=== PATIENT | male | born 1935 | race Caucasian/White ===

== ENCOUNTER → 2016-11-23 | Outpatient (REF) | payer MEDICARE | LOC: M SFHCPLAZ 11:54 | PROVIDERS: ATTEND Nurse Practitioner Adult Health | DX: R31.9 Hematuria, unspecified (principal) ==

== ENCOUNTER → 2016-12-06 | Outpatient (CLI) | payer MEDICARE ==
--- NOTE | 2016-12-06 16:01 | REP ---
Chest x-ray PA and lateral: 12/06/2016. Comparison: 08/16/2016, 05/21/2016. Clinical history: Cough for over a month. Findings: Lungs are marginally adequate in the degree of inflation. There is no pleural effusion, lateral pleural thickening, apical scarring or pneumothorax. The heart, mediastinal and hilar contours are normal. The airway is intact. There is no aortic aneurysm, dense consolidation, parenchymal mass or pulmonary nodule. Bony thorax shows marginal osteophytes without acute compression deformity. Impression: No acute cardiopulmonary disease, stable chest. Signed by Keron Garrett MD 12/06/2016 04:32 P
== END ==
LOC: M WUC 15:12
PROVIDERS: ATTEND Physician Assistant
DX: R05 Cough (principal)

== ENCOUNTER → 2017-02-12 | Outpatient (CLI) | payer MEDICARE ==
[2017-02-12 19:54] LABS: MEAN CORPUSCULAR HEMOGLOBIN 30.4 pg (27.0-33.0); MEAN CORPUSCULAR HGB CONC 32.8 g/dl (32.0-36.5); MEAN CORPUSCULAR VOLUME 92.7 fl (80.0-96.0); RED CELL DISTRIBUTION WIDTH 13.1 % (11.5-14.5); WHITE BLOOD COUNT 5.3 K/mm3 (4.0-10.0)
[2017-02-12 20:19] LABS: ALBUMIN 3.9 GM/DL (3.2-5.2); ALKALINE PHOSPHATASE 62 U/L (45-117); ALT/SGPT 22 U/L (12-78); ANION GAP 10 MEQ/L (8-16); AST/SGOT 19 U/L (15-37); BILIRUBIN,TOTAL 0.5 MG/DL (0.2-1.0); BLOOD UREA NITROGEN 16 MG/DL (7-18); CARBON DIOXIDE LEVEL 27 MEQ/L (21-32); CHLORIDE LEVEL 100 MEQ/L (98-107); CHOLESTEROL LEVEL 176 MG/DL (<200); CREATININE FOR GFR 0.96 MG/DL (0.70-1.30); GLOMERULAR FILTRATION RATE > 60.0 (>42); GLUCOSE, FASTING 97 MG/DL (83-110); POTASSIUM SERUM 4.2 MEQ/L (3.5-5.1); SODIUM LEVEL 137 MEQ/L (136-145); TOTAL PROTEIN 6.9 GM/DL (6.4-8.2); TRIGLYCERIDES LEVEL 190 MG/DL (<150)
== END ==
LOC: M WUC 08:44
PROVIDERS: ATTEND Nurse Practitioner Adult Health
DX: Z00.00 Encounter for general adult medical examination without abnormal findings (principal); I10 Essential (primary) hypertension; E55.9 Vitamin D deficiency, unspecified; R73.01 Impaired fasting glucose; E78.00 Pure hypercholesterolemia, unspecified; N40.0 Benign prostatic hyperplasia without lower urinary tract symptoms

== ENCOUNTER → 2017-02-28 | Outpatient (REF) | payer MEDICARE | LOC: M SFHCPLAZ 16:23 | PROVIDERS: ATTEND Nurse Practitioner Adult Health | DX: R19.7 Diarrhea, unspecified (principal) ==

== ENCOUNTER → 2017-05-27 | Outpatient (CLI) | payer MEDICARE ==
[~2017-05-27] MED LIST: ASPI81TA85 PO; AZOP0.2S; BIMA01SOL; CLAR10CA3 PO; CLEO150C PO; COMB0.2S OU; COMBIGAN; DOXY-278 PO; FLUT1SPR2; LISINOPRIL-HCTZ; LISINOPRIL-HCTZ PO; LOTR1CRE11 TOP; MUPI2OI EXT; NEXI40CA; NORCOTAB PO; PHEN-501 PO; PREDOPD; PROAAER10; VITA100066 PO
[2017-05-27 12:38] LABS: BASO % 0.5 % (0.0-1.0); EOS # 0.1 K/mm3 (0.0-0.50); EOS % 1.5 % (0.0-3.0); LARGE UNSTAINED CELL # 0.1 K/mm3 (0.0-0.4); LARGE UNSTAINED CELL % 1.7 % (0.0-4.0); LYMPH # 2.4 K/mm3 (1.5-4.5); LYMPH % 36.1 % (24.0-44.0); MEAN CORPUSCULAR HEMOGLOBIN 31.9 pg (27.0-33.0); MEAN CORPUSCULAR HGB CONC 34.2 g/dl (32.0-36.5); MEAN CORPUSCULAR VOLUME 93.2 fl (80.0-96.0); MONO # 0.4 K/mm3 (0.0-0.8); MONO % 6.1 % (0.0-5.0); NEUTROPHILS # 3.6 K/mm3 (1.8-7.7); NEUTROPHILS % 54.1 % (36.0-66.0); PLATELET COUNT, AUTOMATED 234 k/mm3 (150-450); RED CELL DISTRIBUTION WIDTH 12.7 % (11.5-14.5); WHITE BLOOD COUNT 6.6 K/mm3 (4.0-10.0)
[2017-05-27 13:24] LABS: ANION GAP 9 MEQ/L (8-16); BLOOD UREA NITROGEN 20 MG/DL (7-18); CALCIUM LEVEL 8.9 MG/DL (8.8-10.2); CARBON DIOXIDE LEVEL 27 MEQ/L (21-32); CHLORIDE LEVEL 101 MEQ/L (98-107); CREATININE FOR GFR 0.85 MG/DL (0.70-1.30); GLOMERULAR FILTRATION RATE > 60.0 (>35); GLUCOSE, FASTING 81 MG/DL (83-110); POTASSIUM SERUM 4.1 MEQ/L (3.5-5.1); SODIUM LEVEL 137 MEQ/L (136-145)
== END ==
LOC: M WUC 10:22
PROVIDERS: ATTEND Physician Assistant
DX: R23.3 Spontaneous ecchymoses (principal)

== ENCOUNTER → 2017-06-04 | Outpatient (REF) | payer MEDICARE | LOC: M LAB REF 19:21 | PROVIDERS: ATTEND Physician Assistant | DX: R30.0 Dysuria (principal) ==

== ENCOUNTER → 2017-06-19 | Outpatient (CLI) | payer MEDICARE ==
[2017-06-19 17:54] LABS: MEAN CORPUSCULAR HEMOGLOBIN 30.9 pg (27.0-33.0); MEAN CORPUSCULAR VOLUME 93.6 fl (80.0-96.0); RED CELL DISTRIBUTION WIDTH 13.1 % (11.5-14.5); WHITE BLOOD COUNT 5.8 K/mm3 (4.0-10.0)
[2017-06-19 18:39] LABS: ALBUMIN/GLOBULIN RATIO 1.25 (1.00-1.93); ALKALINE PHOSPHATASE 71 U/L (45-117); ALT/SGPT 19 U/L (12-78); ANION GAP 9 MEQ/L (8-16); AST/SGOT 21 U/L (15-37); BILIRUBIN,TOTAL 0.6 MG/DL (0.2-1.0); BLOOD UREA NITROGEN 17 MG/DL (7-18); CALCIUM LEVEL 9.5 MG/DL (8.8-10.2); CARBON DIOXIDE LEVEL 29 MEQ/L (21-32); CHLORIDE LEVEL 98 MEQ/L (98-107); CHOLESTEROL LEVEL 202 MG/DL (<200); CREATININE FOR GFR 0.92 MG/DL (0.70-1.30); GLOMERULAR FILTRATION RATE > 60.0 (>35); GLUCOSE, FASTING 88 MG/DL (83-110); POTASSIUM SERUM 4.5 MEQ/L (3.5-5.1); SODIUM LEVEL 136 MEQ/L (136-145); TOTAL PROTEIN 7.2 GM/DL (6.4-8.2); TRIGLYCERIDES LEVEL 225 MG/DL (<150)
== END ==
LOC: M WUC 10:15
PROVIDERS: ATTEND Nurse Practitioner Adult Health
DX: R73.01 Impaired fasting glucose (principal); I10 Essential (primary) hypertension; E78.2 Mixed hyperlipidemia; E55.9 Vitamin D deficiency, unspecified

== ENCOUNTER 2017-06-26 13:59 | Emergency (ER) | payer MEDICARE ==
[~2017-06-26] VITALS: Ht 162.6 cm; Wt 70.9 kg
[2017-06-26 13:59] VITALS: BP 151/83
[2017-06-26] MEDS ORDERED: ASPI81TA85 PO (14:14)
[2017-06-26] MEDS ORDERED: PREDOPD (14:14)
[2017-06-26] MEDS ORDERED: NEXI40CA (14:14)
[2017-06-26] MEDS ORDERED: BIMA01SOL (14:14)
[2017-06-26] MEDS ORDERED: VITA100066 PO (14:14)
[2017-06-26] MEDS ORDERED: LISINOPRIL-HCTZ (14:14)
[2017-06-26] MEDS ORDERED: CLAR10CA3 PO (14:14)
[2017-06-26] MEDS ORDERED: PROAAER10 (14:14)
[2017-06-26] MEDS ORDERED: AZOP0.2S (14:14)
[2017-06-26] MEDS ORDERED: FLUT1SPR2 (14:14)
[2017-06-26] MEDS ORDERED: COMBIGAN (14:14)
[2017-06-26] MEDS ORDERED: PHENAZOPYRIDINE 100 MG TAB PO ONE (15:45)
[2017-06-26 16:06] LABS: MEAN CORPUSCULAR HEMOGLOBIN 30.8 pg (27.0-33.0); MEAN CORPUSCULAR VOLUME 90.6 fl (80.0-96.0); NEUTROPHILS % 55.8 % (36.0-66.0); PLATELET COUNT, AUTOMATED 255 k/mm3 (150-450); RED CELL DISTRIBUTION WIDTH 12.8 % (11.5-14.5); WHITE BLOOD COUNT 7.1 K/mm3 (4.0-10.0)
[2017-06-26 16:07] LABS: BASO % 0.3 % (0.0-1.0); EOS # 0.1 K/mm3 (0.0-0.50); EOS % 1.3 % (0.0-3.0); LARGE UNSTAINED CELL # 0.1 K/mm3 (0.0-0.4); LARGE UNSTAINED CELL % 1.5 % (0.0-4.0); LYMPH # 2.6 K/mm3 (1.5-4.5); LYMPH % 34.8 % (24.0-44.0); MONO # 0.4 K/mm3 (0.0-0.8); MONO % 6.2 % (0.0-5.0); NEUTROPHILS # 3.9 K/mm3 (1.8-7.7)
[2017-06-26 16:20] LABS: ANION GAP 10 MEQ/L (8-16); BLOOD UREA NITROGEN 15 MG/DL (7-18); CALCIUM LEVEL 9.3 MG/DL (8.8-10.2); CARBON DIOXIDE LEVEL 25 MEQ/L (21-32); CHLORIDE LEVEL 102 MEQ/L (98-107); CREATININE FOR GFR 0.81 MG/DL (0.70-1.30); GLOMERULAR FILTRATION RATE > 60.0 (>35); GLUCOSE, FASTING 119 MG/DL (83-110); SODIUM LEVEL 137 MEQ/L (136-145)
[2017-06-26] MEDS ORDERED: PHEN-501 PO (16:22)
[2017-09-23] MEDS ORDERED: LISINOPRIL-HCTZ PO (10:36)
[2017-09-23] MEDS ORDERED: COMB0.2S OU (10:36)
[2017-09-23] MEDS ORDERED: LOTR1CRE11 TOP (12:14)
== END 2017-06-26 16:29 | disposition home or self-care (01) ==
LOC: M ED 13:59
DX: M54.5 Low back pain (principal); R30.0 Dysuria; Z79.82 Long term (current) use of aspirin; Z79.899 Other long term (current) drug therapy; Z88.1 Allergy status to other antibiotic agents; Z88.2 Allergy status to sulfonamides; Z88.8 Allergy status to other drugs, medicaments and biological substances

== ENCOUNTER 2017-07-13 11:30 | Emergency (ER) | payer MEDICARE ==
[~2017-07-13] VITALS: Ht 162.6 cm; Wt 69.1 kg
[~2017-07-13 11:30] MED LIST changes: -CLEO150C PO; -COMB0.2S OU; -DOXY-278 PO; -LISINOPRIL-HCTZ PO; -LOTR1CRE11 TOP; -MUPI2OI EXT; -NORCOTAB PO
--- NOTE | 2017-07-13 13:09 | REP ---
CT Head without contrast HISTORY: Fall COMPARISON: 03/18/2012 Areas of decreased attenuation are present in the periventricular white matter. This represents small-vessel ischemic disease. There is no intraparenchymal hemorrhage, acute infarct, mass or midline shift. The ventricular system and cortical sulci are dilated consistent with mild volume loss. There is no extra cerebral collection. There is no fracture. The visualized sinuses are clear. Several punctate collections of air are present in the subgaleal tissue overlying the right frontal bone. IMPRESSION: 1. Small vessel ischemic disease. 2. Mild volume loss. Signed by Booker Chamberlain MD 07/13/2017 01:01 P
[2017-07-13] MEDS ORDERED: PERCOCET 5MG/325MG TAB PO ONE (13:45)
[2017-07-13] MEDS ORDERED: CLEO150C PO (13:49)
[2017-07-13] MEDS ORDERED: NORCOTAB PO (13:49)
--- NOTE | 2017-07-13 14:04 | REP ---
MAXILLOFACIAL CT WITHOUT CONTRAST: HISTORY: Fall. COMPARISON: 08/03/2011 The sinuses are clear. The osteomeatal units are patent. The middle and inferior nasal turbinates are partially paradoxical. The nasal septum is midline. The cribriform plate, medial peraza of the orbits and optic canals are intact. The carotid canals form a segment of the posterolateral peraza of the sphenoid sinus. There is no fracture. The patient is status post repair of a fracture at the junction of the angle and body of the left mandible. Curvilinear calcification is present superior to and contiguous with the left globe. This is surrounded by a small amount of soft tissue that likely represents scar tissue. Several punctate collections of air are present in the subgaleal soft tissue overlying the right frontal bone. IMPRESSION: There is no acute or chronic sinusitis. Signed by Booker Chamberlain MD 07/13/2017 02:06 P
--- NOTE | 2017-07-13 14:09 | REP ---
RIGHT HAND SERIES: Five views. HISTORY: Injury in a fall. Deformity. FINDINGS: There is a dorsal ulnar dislocation of the PIP joint of the small finger. No fracture visible on these views. No other fracture or subluxation is seen. IMPRESSION: Dorsal ulnar dislocation PIP joint small finger. Signed by Antwan Hernandez MD 07/13/2017 03:24 P
[2017-07-13] MEDS ORDERED: ACETAMINOPHEN TAB 650MG DOSE (2X325MG) PO ONE (14:30)
[2017-07-13 14:33] VITALS: BP 157/74
[2017-09-23] MEDS ORDERED: COMB0.2S OU (10:36)
[2017-09-23] MEDS ORDERED: LISINOPRIL-HCTZ PO (10:36)
[2017-09-23] MEDS ORDERED: LOTR1CRE11 TOP (12:14)
== END 2017-07-13 14:37 | disposition home or self-care (01) ==
LOC: M ED 11:30
DX: S01.81XA Laceration without foreign body of other part of head, initial encounter (principal); S63.286A Dislocation of proximal interphalangeal joint of right little finger, initial encounter; S61.216A Laceration without foreign body of right little finger without damage to nail, initial encounter; S80.211A Abrasion, right knee, initial encounter; S80.212A Abrasion, left knee, initial encounter; W19.XXXA Unspecified fall, initial encounter; Y92.410 Unspecified street and highway as the place of occurrence of the external cause; Y93.01 Activity, walking, marching and hiking; Y99.8 Other external cause status; J45.909 Unspecified asthma, uncomplicated; K21.9 Gastro-esophageal reflux disease without esophagitis

== ENCOUNTER → 2017-08-03 | Outpatient (REF) | payer MEDICARE ==
[~2017-08-03] MED LIST changes: +CLEO150C PO; +COMB0.2S OU; +DOXY-278 PO; +LISINOPRIL-HCTZ PO; +LOTR1CRE11 TOP; +MUPI2OI EXT; +NORCOTAB PO
== END ==
LOC: M LAB REF 16:13
PROVIDERS: ATTEND Physician Assistant
DX: M54.5 Low back pain (principal)

== ENCOUNTER 2017-08-18 13:40 | Emergency (ER) | payer MEDICARE ==
[~2017-08-18] VITALS: Ht 162.6 cm; Wt 68.6 kg
[2017-08-18 13:40] VITALS: BP 124/68
[~2017-08-18 13:40] MED LIST changes: -COMB0.2S OU; -DOXY-278 PO; -LISINOPRIL-HCTZ PO; -LOTR1CRE11 TOP; -MUPI2OI EXT
[2017-08-18] MEDS ORDERED: DOXY-278 PO (13:54)
[2017-08-18] MEDS ORDERED: MUPI2OI EXT (13:54)
[2017-09-23] MEDS ORDERED: COMB0.2S OU (10:36)
[2017-09-23] MEDS ORDERED: LISINOPRIL-HCTZ PO (10:36)
[2017-09-23] MEDS ORDERED: LOTR1CRE11 TOP (12:14)
== END 2017-08-18 17:00 | disposition home or self-care (01) ==
LOC: M ED 13:40
DX: L02.511 Cutaneous abscess of right hand (principal); L03.011 Cellulitis of right finger; I10 Essential (primary) hypertension; J45.909 Unspecified asthma, uncomplicated; Z79.2 Long term (current) use of antibiotics; Z79.82 Long term (current) use of aspirin; Z79.899 Other long term (current) drug therapy; Z88.0 Allergy status to penicillin; Z88.2 Allergy status to sulfonamides; Z88.8 Allergy status to other drugs, medicaments and biological substances
CPT/HCPCS: 10060; 99282; G0463

== ENCOUNTER → 2017-09-06 | Outpatient (CLI) | payer MEDICARE ==
[~2017-09-06] MED LIST changes: +COMB0.2S OU; +DOXY-278 PO; +LISINOPRIL-HCTZ PO; +LOTR1CRE11 TOP; +MUPI2OI EXT
[2017-09-06 14:30] LABS: ALBUMIN/GLOBULIN RATIO 1.21 (1.00-1.93); ALKALINE PHOSPHATASE 75 U/L (45-117); ALT/SGPT 19 U/L (12-78); ANION GAP 8 MEQ/L (8-16); AST/SGOT 15 U/L (15-37); BILIRUBIN,TOTAL 0.6 MG/DL (0.2-1.0); BLOOD UREA NITROGEN 13 MG/DL (7-18); CALCIUM LEVEL 9.2 MG/DL (8.8-10.2); CARBON DIOXIDE LEVEL 29 MEQ/L (21-32); CHLORIDE LEVEL 100 MEQ/L (98-107); CHOLESTEROL LEVEL 193 MG/DL (<200); CREATININE FOR GFR 0.81 MG/DL (0.70-1.30); GLOMERULAR FILTRATION RATE > 60.0 (>35); GLUCOSE, FASTING 97 MG/DL (83-110); POTASSIUM SERUM 4.2 MEQ/L (3.5-5.1); SODIUM LEVEL 137 MEQ/L (136-145); TOTAL PROTEIN 7.3 GM/DL (6.4-8.2); TRIGLYCERIDES LEVEL 228 MG/DL (<150)
== END ==
LOC: M WUC 10:12
PROVIDERS: ATTEND Nurse Practitioner Adult Health
DX: I10 Essential (primary) hypertension (principal); R73.01 Impaired fasting glucose; E78.2 Mixed hyperlipidemia

== ENCOUNTER 2017-10-08 09:21 | Emergency (ER) | payer MEDICARE ==
[~2017-10-08] VITALS: Ht 162.6 cm; Wt 68.8 kg
[2017-10-08 09:26] VITALS: BP 125/73
[2017-10-08] MEDS ORDERED: NYST10PW (09:31)
[2017-10-08] MEDS ORDERED: KETO2CR EXT (09:48)
[2017-10-08] MEDS ORDERED: NYST1POW9 TOP (09:48)
== END 2017-10-08 10:13 | disposition home or self-care (01) ==
LOC: M ED 09:21
DX: B35.6 Tinea cruris (principal); J45.909 Unspecified asthma, uncomplicated; I10 Essential (primary) hypertension; Z88.0 Allergy status to penicillin; Z88.8 Allergy status to other drugs, medicaments and biological substances; Z88.1 Allergy status to other antibiotic agents; Z88.2 Allergy status to sulfonamides; Z79.899 Other long term (current) drug therapy; Z87.442 Personal history of urinary calculi

== ENCOUNTER → 2018-01-10 | Outpatient (REF) | payer MEDICARE | LOC: M LAB REF 16:27 | DX: R10.815 Periumbilic abdominal tenderness (principal) | CPT/HCPCS: 87086 ==

== ENCOUNTER → 2018-02-16 | Outpatient (CLI) | payer MEDICARE ==
[2018-02-16 13:38] LABS: ESTIMATED AVERAGE GLUCOSE 128 MG/DL (60-110); HEMOGLOBIN A1c 6.1 %
[2018-02-16 13:40] LABS: ALBUMIN 3.7 GM/DL (3.2-5.2); ALBUMIN/GLOBULIN RATIO 1.19 (1.00-1.93); ALKALINE PHOSPHATASE 70 U/L (45-117); ALT/SGPT 17 U/L (12-78); ANION GAP 7 MEQ/L (8-16); AST/SGOT 16 U/L (7-37); BILIRUBIN,TOTAL 0.5 MG/DL (0.2-1.0); BLOOD UREA NITROGEN 22 MG/DL (7-18); CALCIUM LEVEL 9.3 MG/DL (8.8-10.2); CARBON DIOXIDE LEVEL 27 MEQ/L (21-32); CHLORIDE LEVEL 103 MEQ/L (98-107); CHOLESTEROL LEVEL 173 MG/DL (<200); CREATININE FOR GFR 0.93 MG/DL (0.70-1.30); GLOMERULAR FILTRATION RATE > 60.0 (>35); GLUCOSE, FASTING 96 MG/DL (70-100); HDL CHOLESTEROL 46 MG/DL (>40); LDL CHOLESTEROL 86.2 MG/DL (<100); NON-HDL-C 127 MG/DL; POTASSIUM SERUM 4.1 MEQ/L (3.5-5.1); PSA SCREENING 1.91 NG/ML (< 4.0); SODIUM LEVEL 137 MEQ/L (136-145); THYROID STIMULATING HORMONE 0.842 uIU/ML (0.358-3.740); TOTAL PROTEIN 6.8 GM/DL (6.4-8.2); TRIGLYCERIDES LEVEL 204 MG/DL (<150)
[2018-02-16 14:16] LABS: TOTAL 25(OH) VITAMIN D 25.4 NG/ML (30.0-100.0)
== END ==
LOC: M WUC 09:38
DX: Z00.00 Encounter for general adult medical examination without abnormal findings (principal); I10 Essential (primary) hypertension; R73.01 Impaired fasting glucose; E78.2 Mixed hyperlipidemia; E55.9 Vitamin D deficiency, unspecified
CPT/HCPCS: 84443

== ENCOUNTER → 2018-07-26 | Outpatient (CLI) | payer MEDICARE ==
[2018-07-26 10:24] LABS: ALBUMIN 4.1 GM/DL (3.2-5.2); ALBUMIN/GLOBULIN RATIO 1.24 (1.00-1.93); ALKALINE PHOSPHATASE 70 U/L (45-117); ALT/SGPT 19 U/L (12-78); ANION GAP 9 MEQ/L (8-16); AST/SGOT 16 U/L (7-37); BILIRUBIN,TOTAL 0.7 MG/DL (0.2-1.0); BLOOD UREA NITROGEN 16 MG/DL (7-18); CALCIUM LEVEL 9.7 MG/DL (8.8-10.2); CARBON DIOXIDE LEVEL 29 MEQ/L (21-32); CHLORIDE LEVEL 100 MEQ/L (98-107); CREATININE FOR GFR 0.87 MG/DL (0.70-1.30); GLOMERULAR FILTRATION RATE > 60.0 (>35); GLUCOSE, FASTING 89 MG/DL (70-100); POTASSIUM SERUM 4.3 MEQ/L (3.5-5.1); SODIUM LEVEL 138 MEQ/L (136-145); TOTAL PROTEIN 7.4 GM/DL (6.4-8.2)
[2018-07-26 10:30] LABS: ESTIMATED AVERAGE GLUCOSE 120 MG/DL (60-110); HEMOGLOBIN A1c 5.8 %
== END ==
LOC: M WUC 08:43
DX: G44.209 Tension-type headache, unspecified, not intractable (principal); Z79.899 Other long term (current) drug therapy
CPT/HCPCS: 80053

== ENCOUNTER → 2018-08-19 | Outpatient (CLI) | payer MEDICARE ==
[2018-08-19 11:38] LABS: ALBUMIN 3.6 GM/DL (3.2-5.2); ALBUMIN/GLOBULIN RATIO 1.09 (1.00-1.93); ALKALINE PHOSPHATASE 60 U/L (45-117); ALT/SGPT 18 U/L (12-78); ANION GAP 9 MEQ/L (8-16); AST/SGOT 17 U/L (7-37); BILIRUBIN,TOTAL 0.8 MG/DL (0.2-1.0); BLOOD UREA NITROGEN 17 MG/DL (7-18); CALCIUM LEVEL 8.4 MG/DL (8.8-10.2); CARBON DIOXIDE LEVEL 25 MEQ/L (21-32); CHLORIDE LEVEL 102 MEQ/L (98-107); CHOLESTEROL LEVEL 180 MG/DL (<200); CHOLESTEROL RISK RATIO 3.333 (<5); CREATININE FOR GFR 0.81 MG/DL (0.70-1.30); GLOMERULAR FILTRATION RATE > 60.0 (>35); GLUCOSE, FASTING 88 MG/DL (70-100); HDL CHOLESTEROL 54 MG/DL (>40); LDL CHOLESTEROL 92 MG/DL (<100); NON-HDL-C 126 MG/DL; POTASSIUM SERUM 4.3 MEQ/L (3.5-5.1); SODIUM LEVEL 136 MEQ/L (136-145); TOTAL PROTEIN 6.9 GM/DL (6.4-8.2); TRIGLYCERIDES LEVEL 171 MG/DL (<150)
[2018-08-19 12:03] LABS: ESTIMATED AVERAGE GLUCOSE 123 MG/DL (60-110); HEMOGLOBIN A1c 5.9 %
[2018-08-21 09:15] LABS: TOTAL 25(OH) VITAMIN D 21.9 NG/ML (30.0-100.0)
== END ==
LOC: M WUC 09:11
DX: I10 Essential (primary) hypertension (principal); E78.2 Mixed hyperlipidemia; E55.9 Vitamin D deficiency, unspecified; R73.01 Impaired fasting glucose
CPT/HCPCS: 80053

== ENCOUNTER → 2018-11-05 | Outpatient (CLI) | payer MEDICARE ==
[~2018-11-05] MED LIST changes: -DOXY-278 PO; +DOXY-350 PO; +KETO2CR EXT; -LOTR1CRE11 TOP; +LOTR1CRE12 TOP; +NYST10PW; +NYST1POW9 TOP
--- NOTE | 2018-11-05 12:52 | REP ---
REASON: Trauma. PRIORS: None. FINDINGS: The compartments are symmetric and relatively well maintained. There is no acute fracture or destructive osseous lesion. Electronically Signed by Alberto Shaw DO 11/05/2018 12:58 P
--- NOTE | 2018-11-05 12:55 | REP ---
REASON: Trauma. PRIORS: None. FINDINGS: There is no acute fracture, dislocation, subluxation, or joint effusion. There are some soft tissue calcifications anteriorly and above the elbow joint of uncertain etiology. Correlate clinically. Electronically Signed by Alberto Shaw DO 11/05/2018 12:58 P
== END ==
LOC: M WUC 11:37
PROVIDERS: ATTEND Physician Assistant
DX: S50.02XA Contusion of left elbow, initial encounter (principal); S80.02XA Contusion of left knee, initial encounter; X58.XXXA Exposure to other specified factors, initial encounter; Y92.9 Unspecified place or not applicable

== ENCOUNTER → 2019-03-04 | Outpatient (CLI) | payer MEDICARE ==
[~2019-03-04] MED LIST changes: +HYDR-3715 PO; -NORCOTAB PO; +NYST-15; -NYST10PW
[2019-03-05 10:06] LABS: TOTAL 25(OH) VITAMIN D 44.1 NG/ML (30.0-100.0)
[2019-03-06 10:01] LABS: ALBUMIN 3.6 GM/DL (3.2-5.2); ALT/SGPT 18 U/L (12-78); BILIRUBIN,TOTAL 0.5 MG/DL (0.2-1.0); BLOOD UREA NITROGEN 23 MG/DL (7-18); CALCIUM LEVEL 8.9 MG/DL (8.8-10.2); CARBON DIOXIDE LEVEL 28 MEQ/L (21-32); CHLORIDE LEVEL 100 MEQ/L (98-107); CHOLESTEROL LEVEL 207 MG/DL (<200); CHOLESTEROL RISK RATIO 4.224 (<5); CREATININE FOR GFR 0.97 MG/DL (0.70-1.30); GLOMERULAR FILTRATION RATE > 60.0 (>35); GLUCOSE, FASTING 89 MG/DL (70-100); HDL CHOLESTEROL 49 MG/DL (>40); LDL CHOLESTEROL 113 MG/DL (<100); NON-HDL-C 158 MG/DL; POTASSIUM SERUM 4.4 MEQ/L (3.5-5.1); SODIUM LEVEL 136 MEQ/L (136-145); TOTAL PROTEIN 6.7 GM/DL (6.4-8.2); TRIGLYCERIDES LEVEL 225 MG/DL (<150)
== END ==
LOC: M WUC 08:40
PROVIDERS: ATTEND Nurse Practitioner Adult Health
DX: E55.9 Vitamin D deficiency, unspecified (principal); I10 Essential (primary) hypertension; E78.2 Mixed hyperlipidemia

== ENCOUNTER → 2019-08-20 | Outpatient (CLI) | payer MEDICARE ==
[2019-08-20 13:29] LABS: ALBUMIN 3.8 GM/DL (3.2-5.2); ALT/SGPT 16 U/L (12-78); BILIRUBIN,TOTAL 0.6 MG/DL (0.2-1.0); BLOOD UREA NITROGEN 19 MG/DL (7-18); CALCIUM LEVEL 9.5 MG/DL (8.8-10.2); CARBON DIOXIDE LEVEL 30 MEQ/L (21-32); CHLORIDE LEVEL 101 MEQ/L (98-107); CHOLESTEROL LEVEL 224 MG/DL (<200); CHOLESTEROL RISK RATIO 3.446 (<5); CREATININE FOR GFR 1.05 MG/DL (0.70-1.30); GLOMERULAR FILTRATION RATE > 60.0 (>35); GLUCOSE, FASTING 91 MG/DL (70-100); HDL CHOLESTEROL 65 MG/DL (>40); LDL CHOLESTEROL 127 MG/DL (<100); NON-HDL-C 159 MG/DL; POTASSIUM SERUM 4.5 MEQ/L (3.5-5.1); SODIUM LEVEL 138 MEQ/L (136-145); TOTAL PROTEIN 7.5 GM/DL (6.4-8.2); TRIGLYCERIDES LEVEL 161 MG/DL (<150)
[2019-08-20 13:37] LABS: TOTAL 25(OH) VITAMIN D 25.3 NG/ML (30.0-100.0)
[2019-08-20 14:42] LABS: HEMOGLOBIN A1c 5.6 %
== END ==
LOC: M WUC 09:34
PROVIDERS: ATTEND Nurse Practitioner Adult Health
DX: E55.9 Vitamin D deficiency, unspecified (principal); I10 Essential (primary) hypertension; E78.2 Mixed hyperlipidemia; R73.01 Impaired fasting glucose; Z79.51 Long term (current) use of inhaled steroids; Z79.899 Other long term (current) drug therapy

== ENCOUNTER → 2020-05-30 | Outpatient (CLI) | payer MEDICARE ==
[~2020-05-30] MED LIST changes: -ASPI81TA85 PO; +ASPI81TA86 PO
[2020-05-30 11:30] LABS: HEMOGLOBIN 14.6 g/dl (13.5-17.5); MEAN CORPUSCULAR HEMOGLOBIN 30.7 pg (27.0-33.0); MEAN CORPUSCULAR HGB CONC 32.4 g/dl (32.0-36.5); MEAN CORPUSCULAR VOLUME 94.5 fl (80.0-96.0); PLATELET COUNT, AUTOMATED 239 10^3/uL (150-450); RED BLOOD COUNT 4.76 10^6/uL (4.30-6.10); WHITE BLOOD COUNT 6.7 10^3/uL (4.0-10.0)
[2020-05-30 11:49] LABS: BILIRUBIN,TOTAL 0.8 MG/DL (0.2-1.0); CALCIUM LEVEL 9.6 MG/DL (8.8-10.2); CHOLESTEROL RISK RATIO 4.294 (<5); CREATININE FOR GFR 1.24 MG/DL (0.70-1.30); GLOMERULAR FILTRATION RATE 59.3 (>35); POTASSIUM SERUM 4.3 MEQ/L (3.5-5.1); THYROID STIMULATING HORMONE 0.635 uIU/ML (0.358-3.740); TOTAL PROTEIN 7.3 GM/DL (6.4-8.2)
== END ==
LOC: M WUC 09:21
PROVIDERS: ATTEND Nurse Practitioner Adult Health
DX: Z00.00 Encounter for general adult medical examination without abnormal findings (principal); E55.9 Vitamin D deficiency, unspecified; I10 Essential (primary) hypertension; E78.2 Mixed hyperlipidemia; R53.83 Other fatigue; Z79.899 Other long term (current) drug therapy

== ENCOUNTER → 2020-11-06 | Outpatient (REF) | payer MEDICARE | LOC: M WUC 19:06 | PROVIDERS: ATTEND Physician Assistant | DX: R30.0 Dysuria (principal) ==

== ENCOUNTER → 2020-11-24 | Outpatient (REF) | payer MEDICARE ==
[2020-11-24 18:50] LABS: APPEARANCE, URINE CLEAR (CLEAR); BACTERIA, URINE AUTO NEGATIVE (NEGATIVE); BILIRUBIN, URINE AUTO NEGATIVE (NEGATIVE); BLOOD, URINE BLOOD 1+ (NEGATIVE); COLOR, URINE YELLOW (YELLOW); GLUCOSE, URINE (UA) AUTO NEGATIVE (NEGATIVE); KETONE, URINE AUTO NEGATIVE (NEGATIVE); LEUKOCYTE ESTERASE, URINE AUTO NEGATIVE (NEGATIVE); MUCUS, URINE SMALL (NEGATIVE); NITRITE, URINE AUTO NEGATIVE (NEGATIVE); PROTEIN, URINE AUTO NEGATIVE (NEGATIVE); RBC, URINE AUTO 0 /HPF (0-3); SPECIFIC GRAVITY URINE AUTO 1.009 (1.002-1.035); SQUAMOUS EPITHELIAL CELL UR AU 0 /HPF (0-6); UROBILINOGEN, URINE AUTO 0.2 mg/dL (0.0-2.0); WBC, URINE AUTO 1 /HPF (0-3)
== END ==
LOC: M SMT 17:01
PROVIDERS: ATTEND Nurse Practitioner Women's Health
DX: R30.0 Dysuria (principal)
CPT/HCPCS: 81001; 87086; G0463

== ENCOUNTER → 2020-12-03 | Outpatient (CLI) | payer MEDICARE ==
--- NOTE | 2020-12-03 11:31 | REP ---
INDICATION: MIRCO HEMATURIA COMPARISON: 01/28/2016 TECHNIQUE: Axial noncontrast images from the lung bases to the pubic symphysis with coronal and sagittal reformations. This CT examination was performed using the following dose reduction techniques: Automated exposure control, adjustment of mA and/or kv according to the patient's size, and use of iterative reconstruction technique. FINDINGS: Right kidney includes 4 cm upper pole and 3.5 cm lower pole cysts similar to prior examination. Kidneys are otherwise grossly unremarkable by noncontrast evaluation and there is no evidence for nephroureterolithiasis, acute perinephric stranding, or hydroureteronephrosis. The bladder is collapsed although prostatomegaly is appreciated with mass effect on the base of the bladder possibly related to symptoms of hematuria. Liver, spleen, pancreas, and bilateral adrenal glands are normal for noncontrast evaluation. Evidence for prior cholecystectomy. The enteric system is without obstruction or acute inflammatory process. Normal terminal ileum and appendix are identified in the right lower quadrant. Sigmoid diverticulosis noted without acute diverticulitis. Pelvis demonstrates bladder and prostate gland as above. No ascites. No free air. No adenopathy. Atherosclerotic changes to the aorta and vasculature noted without aneurysm. Musculoskeletal structures demonstrate degenerative changes without acute osseous abnormality. Lung bases are clear. IMPRESSION: Right renal cysts similar to prior examination. No evidence for nephrolithiasis or hydronephrosis. Prostatomegaly with mass effect on the base of the bladder. Sigmoid diverticulosis without acute diverticulitis. <Electronically signed by Tramaine Amato > 12/03/20 [id number]
== END ==
LOC: M RAD 10:22
PROVIDERS: ATTEND Nurse Practitioner Women's Health
DX: N28.1 Cyst of kidney, acquired (principal); R31.29 Other microscopic hematuria; M54.5 Low back pain; Z87.442 Personal history of urinary calculi; N40.0 Benign prostatic hyperplasia without lower urinary tract symptoms

== ENCOUNTER → 2021-03-06 | Outpatient (CLI) | payer MEDICARE ==
[2021-03-06 11:45] LABS: HEMATOCRIT 46.3 % (42.0-52.0); HEMOGLOBIN 14.5 g/dl (13.5-17.5); MEAN CORPUSCULAR HEMOGLOBIN 29.2 pg (27.0-33.0); MEAN CORPUSCULAR HGB CONC 31.3 g/dl (32.0-36.5); MEAN CORPUSCULAR VOLUME 93.2 fl (80.0-96.0); PLATELET COUNT, AUTOMATED 240 10^3/uL (150-450); RED BLOOD COUNT 4.97 10^6/uL (4.30-6.10); WHITE BLOOD COUNT 5.8 10^3/uL (4.0-10.0)
[2021-03-06 12:22] LABS: ALBUMIN 4.1 GM/DL (3.2-5.2); ALT/SGPT 16 U/L (12-78); BILIRUBIN,TOTAL 0.6 MG/DL (0.2-1.0); BLOOD UREA NITROGEN 18 MG/DL (7-18); CALCIUM LEVEL 9.9 MG/DL (8.8-10.2); CARBON DIOXIDE LEVEL 29 MEQ/L (21-32); CHLORIDE LEVEL 102 MEQ/L (98-107); CHOLESTEROL LEVEL 209 MG/DL (<200); CHOLESTEROL RISK RATIO 3.732 (<5); CREATININE FOR GFR 0.89 MG/DL (0.70-1.30); GLOMERULAR FILTRATION RATE > 60.0 (>35); GLUCOSE, FASTING 101 MG/DL (70-100); HDL CHOLESTEROL 56 MG/DL (>40); LDL CHOLESTEROL 113 MG/DL (<100); NON-HDL-C 153 MG/DL; SODIUM LEVEL 137 MEQ/L (136-145); TOTAL 25(OH) VITAMIN D 22.6 NG/ML (30.0-100.0); TOTAL PROTEIN 7.1 GM/DL (6.4-8.2); TRIGLYCERIDES LEVEL 199 MG/DL (<150)
== END ==
LOC: M WUC 09:03
PROVIDERS: ATTEND Nurse Practitioner Adult Health
DX: E55.9 Vitamin D deficiency, unspecified (principal); I10 Essential (primary) hypertension; Z13.29 Encounter for screening for other suspected endocrine disorder; E78.2 Mixed hyperlipidemia

== ENCOUNTER → 2021-08-14 | Outpatient (REF) | payer MEDICARE | LOC: M LAB REF 11:34 | PROVIDERS: ATTEND Physician Assistant | DX: R30.0 Dysuria (principal) ==

== ENCOUNTER → 2021-08-27 | Outpatient (REF) | payer MEDICARE | LOC: M SFHCPLAZ 20:27 | PROVIDERS: ATTEND Nurse Practitioner Adult Health | DX: I10 Essential (primary) hypertension (principal); E55.9 Vitamin D deficiency, unspecified; R53.83 Other fatigue; R73.01 Impaired fasting glucose ==

== ENCOUNTER → 2021-09-03 | Outpatient (CLI) | payer MEDICARE ==
[2021-09-03 12:36] LABS: HEMATOCRIT 41.8 % (42.0-52.0); HEMOGLOBIN 13.5 g/dl (13.5-17.5); MEAN CORPUSCULAR HEMOGLOBIN 30.3 pg (27.0-33.0); MEAN CORPUSCULAR HGB CONC 32.3 g/dl (32.0-36.5); MEAN CORPUSCULAR VOLUME 93.7 fl (80.0-96.0); PLATELET COUNT, AUTOMATED 297 10^3/uL (150-450); RED BLOOD COUNT 4.46 10^6/uL (4.30-6.10); WHITE BLOOD COUNT 6.8 10^3/uL (4.0-10.0)
[2021-09-03 12:58] LABS: ALT/SGPT 15 U/L (12-78); BILIRUBIN,TOTAL 0.8 MG/DL (0.2-1.0); BLOOD UREA NITROGEN 20 MG/DL (7-18); CALCIUM LEVEL 9.2 MG/DL (8.8-10.2); CARBON DIOXIDE LEVEL 32 MEQ/L (21-32); CHLORIDE LEVEL 101 MEQ/L (98-107); CREATININE FOR GFR 1.19 MG/DL (0.70-1.30); GLOMERULAR FILTRATION RATE > 60.0 (>35); GLUCOSE, FASTING 87 MG/DL (70-100); POTASSIUM SERUM 4.2 MEQ/L (3.5-5.1); SODIUM LEVEL 136 MEQ/L (136-145); TOTAL PROTEIN 7.4 GM/DL (6.4-8.2)
[2021-09-03 13:02] LABS: TOTAL 25(OH) VITAMIN D 41.7 NG/ML (30.0-100.0)
[2021-09-03 13:03] LABS: VITAMIN B12 LEVEL 297 PG/ML (247-911)
[2021-09-03 13:06] LABS: HEMOGLOBIN A1c 5.7 %
== END ==
LOC: M WUC 09:22
PROVIDERS: ATTEND Nurse Practitioner Adult Health
DX: R73.01 Impaired fasting glucose (principal); E55.9 Vitamin D deficiency, unspecified; I10 Essential (primary) hypertension; R53.83 Other fatigue

== ENCOUNTER → 2021-09-10 | Outpatient (REF) | payer MEDICARE | LOC: M SFHCPLAZ 16:56 | PROVIDERS: ATTEND Nurse Practitioner Adult Health | DX: N40.0 Benign prostatic hyperplasia without lower urinary tract symptoms (principal); Z23 Encounter for immunization | CPT/HCPCS: 81002; 87086; 90682; G0008; G0463 ==

== ENCOUNTER → 2021-09-22 | Outpatient (REF) | payer MEDICARE | LOC: M LAB REF 15:33 | PROVIDERS: ATTEND Physician Assistant | DX: R30.0 Dysuria (principal) ==

== ENCOUNTER → 2021-10-06 | Outpatient (REF) | payer MEDICARE ==
[2021-10-06 17:21] LABS: APPEARANCE, URINE CLEAR (CLEAR); BACTERIA, URINE AUTO NEGATIVE (NEGATIVE); BILIRUBIN, URINE AUTO NEGATIVE (NEGATIVE); BLOOD, URINE BLOOD 1+ (NEGATIVE); COLOR, URINE YELLOW (YELLOW); GLUCOSE, URINE (UA) AUTO NEGATIVE (NEGATIVE); KETONE, URINE AUTO NEGATIVE (NEGATIVE); LEUKOCYTE ESTERASE, URINE AUTO NEGATIVE (NEGATIVE); MUCUS, URINE SMALL (NEGATIVE); NITRITE, URINE AUTO NEGATIVE (NEGATIVE); PROTEIN, URINE AUTO NEGATIVE (NEGATIVE); RBC, URINE AUTO 1 /HPF (0-3); SPECIFIC GRAVITY URINE AUTO 1.018 (1.002-1.035); SQUAMOUS EPITHELIAL CELL UR AU 0 /HPF (0-6); UROBILINOGEN, URINE AUTO 0.2 mg/dL (0.0-2.0); WBC, URINE AUTO 1 /HPF (0-3)
== END ==
LOC: M SMT 16:43
PROVIDERS: ATTEND Nurse Practitioner Women's Health
DX: R30.0 Dysuria (principal)
CPT/HCPCS: 81001; 87086; G0463

== ENCOUNTER → 2022-05-27 | Outpatient (CLI) | payer MEDICARE ==
[2022-05-27 15:31] LABS: HEMOGLOBIN A1c 5.8 %
[2022-05-27 15:43] LABS: ALBUMIN 4.1 GM/DL (3.2-5.2); ALT/SGPT 17 U/L (12-78); BILIRUBIN,TOTAL 1.1 MG/DL (0.2-1.0); BLOOD UREA NITROGEN 19 MG/DL (7-18); CALCIUM LEVEL 9.4 MG/DL (8.8-10.2); CARBON DIOXIDE LEVEL 29 MEQ/L (21-32); CHLORIDE LEVEL 102 MEQ/L (98-107); CHOLESTEROL LEVEL 207 MG/DL (<200); CHOLESTEROL RISK RATIO 4.058 (<5); CREATININE FOR GFR 1.05 MG/DL (0.70-1.30); GLOMERULAR FILTRATION RATE > 60.0 (>35); GLUCOSE, FASTING 89 MG/DL (70-100); HDL CHOLESTEROL 51 MG/DL (>40); LDL CHOLESTEROL 119 MG/DL (<100); NON-HDL-C 156 MG/DL; POTASSIUM SERUM 4.6 MEQ/L (3.5-5.1); SODIUM LEVEL 135 MEQ/L (136-145); TOTAL PROTEIN 7.5 GM/DL (6.4-8.2); TRIGLYCERIDES LEVEL 187 MG/DL (<150)
[2022-05-27 15:45] LABS: TOTAL 25(OH) VITAMIN D 49.2 NG/ML (30.0-100.0)
== END ==
LOC: M PLAIMG 14:13 → M PLALAB 14:13
PROVIDERS: ATTEND Nurse Practitioner Adult Health
DX: R73.01 Impaired fasting glucose (principal); E55.9 Vitamin D deficiency, unspecified; I10 Essential (primary) hypertension; E78.2 Mixed hyperlipidemia; Z13.29 Encounter for screening for other suspected endocrine disorder; Z79.899 Other long term (current) drug therapy

== ENCOUNTER → 2022-10-02 | Outpatient (REF) | payer MEDICARE ==
[~2022-10-02] MED LIST changes: -DOXY-350 PO; +DOXY-444 PO
== END ==
LOC: M LAB REF 18:02
PROVIDERS: ATTEND Physician Assistant
DX: R10.84 Generalized abdominal pain (principal)

== ENCOUNTER → 2024-01-12 | Outpatient (CLI) | payer MEDICARE ==
[2024-01-12 11:07] LABS: HEMATOCRIT 44.6 % (42.0-52.0); HEMOGLOBIN 14.1 g/dl (13.5-17.5); MEAN CORPUSCULAR HEMOGLOBIN 29.2 pg (27.0-33.0); MEAN CORPUSCULAR HGB CONC 31.6 g/dl (32.0-36.5); MEAN CORPUSCULAR VOLUME 92.3 fl (80.0-96.0); PLATELET COUNT, AUTOMATED 228 10^3/uL (150-450); RED BLOOD COUNT 4.83 10^6/uL (4.30-6.10)
[2024-01-12 11:48] LABS: FERRITIN 94.8 NG/ML (10.5-307.3); TOTAL 25(OH) VITAMIN D 49.6 NG/ML (20.0-100.0)
[2024-01-12 11:51] LABS: VITAMIN B12 LEVEL 294 PG/ML (211-911)
[2024-01-12 11:53] LABS: ALKALINE PHOSPHATASE 76 U/L (46-116); ALT/SGPT 13 U/L (7.0-40); AST/SGOT 15 U/L (<34); BILIRUBIN,TOTAL 0.8 MG/DL (0.3-1.2); BLOOD UREA NITROGEN 23 MG/DL (9-23); CALCIUM LEVEL 10.1 MG/DL (8.3-10.6); CARBON DIOXIDE LEVEL 29 MMOL/L (20-31); CHLORIDE LEVEL 104 MMOL/L (98-107); CHOLESTEROL LEVEL 185 MG/DL (<200); CHOLESTEROL RISK RATIO 3.16 (<5); CREATININE FOR GFR 1.06 MG/DL (0.70-1.30); GLOMERULAR FILTRATION RATE > 60.0 (>35); GLUCOSE, FASTING 93 MG/DL (74-106); HDL CHOLESTEROL 58.5 MG/DL (>40); LDL CHOLESTEROL 94.5 MG/DL (<100); NON-HDL-C 126.5 MG/DL; POTASSIUM SERUM 4.3 MMOL/L (3.5-5.1); SODIUM LEVEL 139 MMOL/L (136-145); TOTAL PROTEIN 7.2 G/DL (5.7-8.2); TRIGLYCERIDES LEVEL 160 MG/DL (<150)
[2024-01-12 12:37] LABS: HEMOGLOBIN A1c 5.8 % (4.0-6.0)
== END ==
LOC: M PLALAB 07:19
PROVIDERS: ATTEND Nurse Practitioner Adult Health
DX: Z00.00 Encounter for general adult medical examination without abnormal findings (principal); I10 Essential (primary) hypertension; R73.01 Impaired fasting glucose; E78.2 Mixed hyperlipidemia; Z13.29 Encounter for screening for other suspected endocrine disorder; E55.9 Vitamin D deficiency, unspecified; D50.9 Iron deficiency anemia, unspecified

== ENCOUNTER 2024-11-28 11:36 | Inpatient (IN) | payer MEDICARE ==
[~2024-11-28] VITALS: Ht 162.6 cm; Wt 64.5 kg
[~2024-11-28 11:36] MED LIST changes: -AZOP0.2S; +AZOP0.2S OU; -BIMA01SOL; +BIMA01SOL OU; +DOXY-440 PO; -DOXY-444 PO; +NYST1POW3 TOP; -NYST1POW9 TOP
[2024-11-28] MEDS ORDERED: ISOVUE-370 76% 100ML VIAL As Ordered ONE (12:03)
[2024-11-28 12:12] LABS: VENOUS BASE EXCESS -1.7 (-2.0-2.0); VENOUS HCO3 24.6 MMOL/L (23.0-27.0); VENOUS O2 SATURATION 53.4 % (60.0-80.0); VENOUS PARTIAL PRESSURE O2 29.7 mmHg (30.0-50.0); VENOUS PH 7.337 UNITS (7.330-7.430); VENOUS STANDARD HCO3 21.9 MMOL/L; VENOUS TOTAL CO2 26.1 MMOL/L (24.0-28.0)
[2024-11-28 12:24] LABS: BASO % 0.1 % (0.0-1.0); EOS # 0.1 10^3/uL (0.0-0.5); EOS % 0.3 % (0.0-3.0); HEMATOCRIT 48.6 % (42.0-52.0); HEMOGLOBIN 15.9 g/dl (13.5-17.5); LYMPH # 0.9 10^3/uL (1.5-5.0); LYMPH % 5.6 % (24.0-44.0); MEAN CORPUSCULAR HEMOGLOBIN 29.5 pg (27.0-33.0); MEAN CORPUSCULAR HGB CONC 32.7 g/dl (32.0-36.5); MEAN CORPUSCULAR VOLUME 90.2 fl (80.0-96.0); MONO # 1.6 10^3/uL (0.0-0.8); MONO % 9.9 % (2.0-8.0); NEUTROPHILS # 13.4 10^3/uL (1.5-8.5); NEUTROPHILS % 83.7 % (36.0-66.0); PLATELET COUNT, AUTOMATED 260 10^3/uL (150-450); RED BLOOD COUNT 5.39 10^6/uL (4.30-6.10)
[2024-11-28 12:37] LABS: OSMOLALITY SERUM 299 MOSM/KG (280-301)
[2024-11-28 12:40] LABS: ETHYL ALCOHOL (ETHANOL) < 0.003 % (0.000-0.010)
[2024-11-28 12:41] LABS: SALICYLATE LEVEL < 3.0 MG/DL (<30)
[2024-11-28 12:42] LABS: ALBUMIN 4.2 G/DL (3.2-5.2); ALKALINE PHOSPHATASE 93 U/L (40-129); ALT/SGPT 33 U/L (7.0-40); AST/SGOT 119 U/L (<34); BILIRUBIN,DIRECT 0.8 MG/DL (<0.4); BILIRUBIN,TOTAL 2.2 MG/DL (0.3-1.2); BLOOD UREA NITROGEN 24 MG/DL (9-23); CALCIUM LEVEL 10.2 MG/DL (8.3-10.6); CARBON DIOXIDE LEVEL 26 MMOL/L (20-31); CHLORIDE LEVEL 100 MMOL/L (98-107); CREATININE FOR GFR 0.67 MG/DL (0.70-1.30); GLOMERULAR FILTRATION RATE > 60.0 (>35); GLUCOSE, FASTING 119 MG/DL (74-106); MAGNESIUM LEVEL 2.2 MG/DL (1.8-2.4); SODIUM LEVEL 140 MMOL/L (136-145); TOTAL PROTEIN 8.1 G/DL (5.7-8.2)
[2024-11-28 12:44] LABS: THYROID STIMULATING HORMONE 0.595 uIU/ML (0.55-4.78)
[2024-11-28] MEDS: BOOSTRIX VACCINE (TETANUS/DIPHTH/ACEL. PERTUSSIS) 0.5ML SYR IM.IMMUN ONE (12:50)
[2024-11-28 13:01] LABS: CPK CREATINE PHOSPHOKINASE 1296 U/L (46-171)
[2024-11-28] MEDS: NS 0.9% IV ONE (13:05)
[2024-11-28] MEDS: [UNRECOGNIZED DRUG - OTHER] IV ONE (13:05)
[2024-11-28] MEDS: LevoFLOXacin IV 750 MG in IV 1 EA IV ONE (13:11)
[2024-11-28 13:42] LABS: KETONE, URINE AUTO RFX 1+ mg/dL (NEGATIVE); LEUKOCYTE ESTERASE UR AUTO RFX NEGATIVE (NEGATIVE); MUCUS, URINE RFX SMALL (NEGATIVE); NITRITE, URINE AUTO RFX NEGATIVE (NEGATIVE); RBC, URINE AUTO RFX 44 /HPF (0-3); SQUAM EPITHELIAL CELL UR AURFX 0 /HPF (0-6); WBC, URINE AUTO RFX 3 /HPF (0-3)
[2024-11-28 14:08] LABS: BARBITURATES URINE NEGATIVE (NEGATIVE); OPIATES URINE NEGATIVE (NEGATIVE); PHENCYCLIDINE URINE NEGATIVE (NEGATIVE)
[2024-11-28 14:09] LABS: AMPHETAMINES LEVEL URINE NEGATIVE (NEGATIVE); BENZODIAZEPINES URINE NEGATIVE (NEGATIVE); CANNABINOIDS URINE NEGATIVE (NEGATIVE); COCAINE METABOLITE URINE NEGATIVE (NEGATIVE); METHADONE URINE NEGATIVE (NEGATIVE)
[2024-11-28] MEDS ORDERED: NS (Normal Saline) 0.9% 1,000 ML IV SCH (14:50)
[2024-11-28] MEDS ORDERED: TERA2CAP3 PO (15:00)
[2024-11-28] MEDS ORDERED: OMEP40CA4 PO (15:00)
[2024-11-28] MEDS ORDERED: VITA-256 PO (15:00)
[2024-11-28] MEDS ORDERED: LISI10TA24 PO (15:00)
[2024-11-28] MEDS ORDERED: ALBU8.5H INH (15:00)
[2024-11-28] MEDS ORDERED: HOME MED LIST COMPLETE! XX SCH (15:05)
[2024-11-28] MEDS: POTASSIUM CHLORIDE 10MEQ SR TABLET PO ONE (15:08)
[2024-11-28] MEDS: POTASSIUM CHLORIDE 10% LIQ 20MEQ/15ML UDC PO ONE (15:17)
[2024-11-28] MEDS ORDERED: ALBUTEROL 90 MCG/ACT 8GM HFA INHALER INH PRN (16:50)
[2024-11-28] MEDS ORDERED: MOM 30ML SUSPENSION UDC PO PRN (16:50)
[2024-11-28] MEDS: LR 1,000 ML IV SCH (17:05)
[2024-11-28 17:32] LABS: C REACTIVE PROTEIN QUANTITATIV 5.93 MG/DL (<1.0)
[2024-11-28 17:43] LABS: ERYTHROCYTE SEDIMENTATION RATE 32 mm/hr (0-20)
[2024-11-28 17:44] LABS: PROCALCITONIN 0.13 ng/ml
[2024-11-28 17:46] LABS: ALBUMIN 4.3 G/DL (3.2-5.2); BILIRUBIN,DIRECT 0.7 MG/DL (<0.4); BILIRUBIN,TOTAL 2.1 MG/DL (0.3-1.2); CHOLESTEROL RISK RATIO 1.96 (<5); HDL CHOLESTEROL 85.1 MG/DL (>40); LDL CHOLESTEROL 66.1 MG/DL (<100); NON-HDL-C 81.9 MG/DL; PROLACTIN 4.51 NG/ML (2.1-17.7); TOTAL PROTEIN 8.1 G/DL (5.7-8.2)
[2024-11-28 18:16] LABS: HEMOGLOBIN A1c 5.4 % (4.0-6.0)
[2024-11-28 18:25] VITALS: BP 149/87; TEMP 97.7; O2SAT 99
[2024-11-28 20:25] VITALS: BP 144/72; TEMP 98.5; O2SAT 97
[2024-11-28] MEDS: LATANOPROST 0.005% OPHTH SOLN 2.5 ML OU SCH (22:12)
[2024-11-28] MEDS: ONDANSETRON 4MG 2ML VIAL IV ONE (22:30)
[2024-11-29 04:10] VITALS: BP 136/77; TEMP 97.9; O2SAT 96
[2024-11-29 06:18] LABS: BASO % 0.1 % (0.0-1.0); HEMATOCRIT 39.9 % (42.0-52.0); LYMPH # 1.1 10^3/uL (1.5-5.0); MEAN CORPUSCULAR HEMOGLOBIN 29.4 pg (27.0-33.0); MEAN CORPUSCULAR HGB CONC 32.3 g/dl (32.0-36.5); MEAN CORPUSCULAR VOLUME 90.9 fl (80.0-96.0); MONO # 1.2 10^3/uL (0.0-0.8); MONO % 9.1 % (2.0-8.0); NEUTROPHILS % 82.4 % (36.0-66.0); PLATELET COUNT, AUTOMATED 185 10^3/uL (150-450); RED BLOOD COUNT 4.39 10^6/uL (4.30-6.10); WHITE BLOOD COUNT 13.4 10^3/uL (4.0-10.0)
[2024-11-29 06:27] LABS: HEMOGLOBIN 12.9 g/dl (13.5-17.5)
[2024-11-29 06:39] LABS: ALBUMIN 3.1 G/DL (3.2-5.2); ALKALINE PHOSPHATASE 67 U/L (40-129); ALT/SGPT 31 U/L (7.0-40); AST/SGOT 106 U/L (<34); BILIRUBIN,DIRECT 0.5 MG/DL (<0.4); BILIRUBIN,TOTAL 1.2 MG/DL (0.3-1.2); BLOOD UREA NITROGEN 25 MG/DL (9-23); CALCIUM LEVEL 8.9 MG/DL (8.3-10.6); CARBON DIOXIDE LEVEL 24 MMOL/L (20-31); CHLORIDE LEVEL 107 MMOL/L (98-107); CPK CREATINE PHOSPHOKINASE 511 U/L (46-171); GLOMERULAR FILTRATION RATE > 60.0 (>35); GLUCOSE, FASTING 98 MG/DL (74-106); POTASSIUM SERUM 3.4 MMOL/L (3.5-5.1); SODIUM LEVEL 143 MMOL/L (136-145); TOTAL PROTEIN 6.1 G/DL (5.7-8.2)
[2024-11-29] MEDS: TIMOLOL MALEATE 0.5% OPHTH SOLN 5 ML OU SCH (09:00)
[2024-11-29] MEDS: BRINZOLAMIDE 1% OPHTH SUSP (AZOPT) 10ML OU SCH (09:00)
[2024-11-29] MEDS: BRIMONIDINE 0.15% OPHTH SOLN 5 ML OU SCH (09:00)
[2024-11-29] MEDS: ASPIRIN 81MG CHEW TABLET PO SCH (09:49)
[2024-11-29] MEDS: VITAMIN D 1,000 INTERNATIONAL UNITS TABLET PO SCH (09:49)
[2024-11-29] MEDS: ENOXAPARIN 30MG/0.3ML SYRINGE (J1650 PER 10MG) SC SCH (09:50)
[2024-11-29] MEDS: CLOPIDOGREL 75 MG TAB PO SCH (09:50)
[2024-11-29] MEDS: OMEPRAZOLE 20MG CAP PO SCH (09:50)
[2024-11-29] MEDS: TERAZOSIN 1 MG CAP PO SCH (11:05)
[2024-11-29 12:00] VITALS: BP 138/80; TEMP 97.8; O2SAT 95
[2024-11-29] MEDS: QUEtiapine FUMARATE 25 MG TAB PO ONE (14:53)
[2024-11-29 19:40] VITALS: BP 142/75; TEMP 97.9; O2SAT 95
[2024-11-30] VITALS (10 sets, daily range): BP systolic 111–160; BP diastolic 58–80; TEMP 97.5–97.9; O2SAT 86–97
[2024-11-30] MEDS ORDERED: NS (Normal Saline) 0.9% 250 ML IV ONE (01:35)
[2024-11-30] MEDS: NYSTATIN 100,000 UNITS/GM TOPICAL PWD 15GM TOP PRN (01:46)
[2024-11-30] MEDS: D5W/0.9% SODIUM CHLORIDE 1,000 ML IV SCH (01:49)
[2024-11-30 04:59] LABS: BASO % 0.1 % (0.0-1.0); EOS % 0.4 % (0.0-3.0); HEMATOCRIT 33.9 % (42.0-52.0); LYMPH # 1.4 10^3/uL (1.5-5.0); LYMPH % 15.3 % (24.0-44.0); MEAN CORPUSCULAR HEMOGLOBIN 29.5 pg (27.0-33.0); MEAN CORPUSCULAR HGB CONC 32.4 g/dl (32.0-36.5); MEAN CORPUSCULAR VOLUME 90.9 fl (80.0-96.0); MONO # 0.6 10^3/uL (0.0-0.8); MONO % 7.2 % (2.0-8.0); NEUTROPHILS # 6.8 10^3/uL (1.5-8.5); NEUTROPHILS % 76.7 % (36.0-66.0); PLATELET COUNT, AUTOMATED 162 10^3/uL (150-450); RED BLOOD COUNT 3.73 10^6/uL (4.30-6.10); WHITE BLOOD COUNT 8.9 10^3/uL (4.0-10.0)
[2024-11-30 05:16] LABS: CPK CREATINE PHOSPHOKINASE 144 U/L (46-171)
[2024-11-30 05:41] LABS: ALBUMIN 2.7 G/DL (3.2-5.2); ALKALINE PHOSPHATASE 58 U/L (40-129); ALT/SGPT 28 U/L (7.0-40); AST/SGOT 70 U/L (<34); BILIRUBIN,DIRECT 0.3 MG/DL (<0.4); BILIRUBIN,TOTAL 0.6 MG/DL (0.3-1.2); BLOOD UREA NITROGEN 23 MG/DL (9-23); CALCIUM LEVEL 8.6 MG/DL (8.3-10.6); CARBON DIOXIDE LEVEL 26 MMOL/L (20-31); CHLORIDE LEVEL 110 MMOL/L (98-107); CREATININE FOR GFR 0.82 MG/DL (0.70-1.30); GLOMERULAR FILTRATION RATE > 60.0 (>35); GLUCOSE, FASTING 104 MG/DL (74-106); SODIUM LEVEL 146 MMOL/L (136-145); TOTAL PROTEIN 5.4 G/DL (5.7-8.2)
[2024-11-30] MEDS: HEPARIN SOD (PORCINE) 5000UNITS/ML 1ML VIAL/SYRINGE SQ SCH (06:02)
[2024-11-30] MEDS: D5W/0.9% SODIUM CHLORIDE 500 ML IV ONE (06:02)
[2024-11-30] MEDS: D5W 1,000 ML IV SCH (07:58)
[2024-11-30] MEDS: POTASSIUM CHLORIDE 10MEQ SR TABLET PO SCH (08:09)
[2024-11-30] MEDS: ACETAMINOPHEN 325 MG TAB PO PRN (11:54)
[2024-11-30] MEDS: NYSTATIN 500,000U/5ML SUSP UDC SS SCH (14:11)
[2024-12-01] VITALS: BP 143/70; TEMP 98.1; O2SAT 96
[2024-12-01 04:00] VITALS: BP 145/81; TEMP 97.7; O2SAT 95
[2024-12-01 06:25] LABS: BASO % 0.3 % (0.0-1.0); EOS # 0.2 10^3/uL (0.0-0.5); EOS % 3.2 % (0.0-3.0); HEMATOCRIT 35.6 % (42.0-52.0); HEMOGLOBIN 11.7 g/dl (13.5-17.5); LYMPH # 1.7 10^3/uL (1.5-5.0); LYMPH % 23.2 % (24.0-44.0); MEAN CORPUSCULAR HEMOGLOBIN 29.8 pg (27.0-33.0); MEAN CORPUSCULAR HGB CONC 32.9 g/dl (32.0-36.5); MEAN CORPUSCULAR VOLUME 90.6 fl (80.0-96.0); MONO # 0.5 10^3/uL (0.0-0.8); MONO % 7.2 % (2.0-8.0); NEUTROPHILS # 4.7 10^3/uL (1.5-8.5); NEUTROPHILS % 65.4 % (36.0-66.0); PLATELET COUNT, AUTOMATED 171 10^3/uL (150-450); RED BLOOD COUNT 3.93 10^6/uL (4.30-6.10); WHITE BLOOD COUNT 7.2 10^3/uL (4.0-10.0)
[2024-12-01 06:57] LABS: ALBUMIN 2.8 G/DL (3.2-5.2); ALKALINE PHOSPHATASE 63 U/L (40-129); ALT/SGPT 24 U/L (7.0-40); AST/SGOT 47 U/L (<34); BILIRUBIN,DIRECT 0.3 MG/DL (<0.4); BILIRUBIN,TOTAL 0.8 MG/DL (0.3-1.2); BLOOD UREA NITROGEN 15 MG/DL (9-23); CARBON DIOXIDE LEVEL 28 MMOL/L (20-31); CHLORIDE LEVEL 106 MMOL/L (98-107); CPK CREATINE PHOSPHOKINASE 61 U/L (46-171); CREATININE FOR GFR 0.75 MG/DL (0.70-1.30); GLOMERULAR FILTRATION RATE > 60.0 (>35); GLUCOSE, FASTING 108 MG/DL (74-106); POTASSIUM SERUM 3.5 MMOL/L (3.5-5.1); SODIUM LEVEL 141 MMOL/L (136-145); TOTAL PROTEIN 5.4 G/DL (5.7-8.2)
[2024-12-01 07:47] VITALS: BP 148/85; TEMP 98.1; O2SAT 95
[2024-12-01 12:06] VITALS: BP 127/74; TEMP 97.9; O2SAT 96
[2024-12-01] MEDS: lisinopriL 5 MG TAB PO SCH (14:25)
[2024-12-01 16:11] VITALS: BP 132/83; TEMP 98.1; O2SAT 95
[2024-12-01 20:00] VITALS: BP 133/83; TEMP 97.9; O2SAT 95
[2024-12-01] MEDS: TAMSULOSIN 0.4 MG CAP PO SCH (21:13)
[2024-12-02 04:00] VITALS: BP 144/71; TEMP 97.7; O2SAT 90
[2024-12-02 12:00] VITALS: BP 108/58; TEMP 97.7; O2SAT 95
[2024-12-02 20:00] VITALS: BP 101/53; TEMP 97.9; O2SAT 93
[2024-12-03] VITALS (7 sets, daily range): BP systolic 117–131; BP diastolic 69–74; TEMP 97.9–98.2; O2SAT 85–95
[2024-12-03 11:34] LABS: HEMATOCRIT 36.3 % (42.0-52.0); HEMOGLOBIN 11.6 g/dl (13.5-17.5); MEAN CORPUSCULAR HEMOGLOBIN 29.5 pg (27.0-33.0); MEAN CORPUSCULAR VOLUME 92.4 fl (80.0-96.0); PLATELET COUNT, AUTOMATED 218 10^3/uL (150-450); RED BLOOD COUNT 3.93 10^6/uL (4.30-6.10); WHITE BLOOD COUNT 7.2 10^3/uL (4.0-10.0)
[2024-12-03 11:54] LABS: BLOOD UREA NITROGEN 16 MG/DL (9-23); CALCIUM LEVEL 8.2 MG/DL (8.3-10.6); CARBON DIOXIDE LEVEL 28 MMOL/L (20-31); CHLORIDE LEVEL 105 MMOL/L (98-107); CREATININE FOR GFR 0.81 MG/DL (0.70-1.30); GLOMERULAR FILTRATION RATE > 60.0 (>35); GLUCOSE, FASTING 106 MG/DL (74-106); SODIUM LEVEL 140 MMOL/L (136-145)
[2024-12-03] MEDS: FUROSEMIDE 20 MG TAB PO SCH (14:54)
[2024-12-04] VITALS: O2SAT 94
[2024-12-04 03:32] VITALS: BP 156/78; TEMP 97.7; O2SAT 94
[2024-12-04 04:00] VITALS: O2SAT 93
[2024-12-04 21:00] VITALS: O2SAT 92
[2024-12-05 04:29] VITALS: BP 119/67; TEMP 97.9; O2SAT 94
[2024-12-05 20:00] VITALS: BP 109/72; TEMP 97.7; O2SAT 94
[2024-12-06 03:50] VITALS: BP 136/88; TEMP 98.1; O2SAT 96
[2024-12-07 04:38] VITALS: BP 128/65; TEMP 97.7; O2SAT 96
[2024-12-08 04:04] VITALS: BP 107/62; TEMP 97.7; O2SAT 94
[2024-12-09 04:37] VITALS: BP 132/60; TEMP 97.7; O2SAT 95
[2024-12-10 04:45] VITALS: BP 134/69; TEMP 97.5; O2SAT 97
[2024-12-11 04:10] VITALS: BP 127/67; TEMP 97.2; O2SAT 98
[2024-12-11] MEDS ORDERED: RAMELTEON 8 MG TAB (ROZEREM) PO ONE (20:40)
[2024-12-11] MEDS: RAMELTEON 8 MG TAB (ROZEREM) PO PRN (21:03)
[2024-12-12 04:42] VITALS: BP 107/61; TEMP 97.7; O2SAT 98
[2024-12-13 04:25] VITALS: BP 113/61; TEMP 97.5; O2SAT 98
[2024-12-15 04:00] VITALS: BP 117/69; TEMP 97.5; O2SAT 94
[2024-12-15] MEDS: ENOXAPARIN 40MG/0.4ML SYRINGE (J1650 PER 10MG) SC SCH (08:12)
[2024-12-16 04:40] VITALS: BP 114/67; TEMP 97.2; O2SAT 97
[2024-12-17 04:41] VITALS: BP 127/65; TEMP 97.5; O2SAT 97
[2024-12-18 04:24] VITALS: BP 129/64; TEMP 97.5; O2SAT 97
[2024-12-18] MEDS: guaiFENesin DM LIQ 10ML UD PO PRN (13:07)
[2024-12-19 04:19] VITALS: BP 124/67; TEMP 97.2; O2SAT 96
[2024-12-19 11:15] LABS: HEMATOCRIT 44.7 % (42.0-52.0); HEMOGLOBIN 14.1 g/dl (13.5-17.5); MEAN CORPUSCULAR HEMOGLOBIN 29.5 pg (27.0-33.0); MEAN CORPUSCULAR HGB CONC 31.5 g/dl (32.0-36.5); MEAN CORPUSCULAR VOLUME 93.5 fl (80.0-96.0); PLATELET COUNT, AUTOMATED 323 10^3/uL (150-450); RED BLOOD COUNT 4.78 10^6/uL (4.30-6.10); WHITE BLOOD COUNT 6.3 10^3/uL (4.0-10.0)
[2024-12-19 11:39] LABS: BLOOD UREA NITROGEN 15 MG/DL (9-23); CALCIUM LEVEL 9.7 MG/DL (8.3-10.6); CARBON DIOXIDE LEVEL 28 MMOL/L (20-31); CHLORIDE LEVEL 100 MMOL/L (98-107); CREATININE FOR GFR 0.86 MG/DL (0.70-1.30); GLOMERULAR FILTRATION RATE > 60.0 (>35); GLUCOSE, FASTING 119 MG/DL (74-106); POTASSIUM SERUM 4.4 MMOL/L (3.5-5.1); SODIUM LEVEL 138 MMOL/L (136-145)
[2024-12-19] MEDS: OMEPRAZOLE 20MG CAP PO SCH (21:31)
[2024-12-20 04:08] VITALS: BP 132/85; TEMP 97.7; O2SAT 97
[2024-12-20] MEDS: LOSARTAN 25 MG TAB PO SCH (09:36)
[2024-12-21 04:00] VITALS: BP 141/86; TEMP 97.3; O2SAT 94
[2024-12-22 04:50] VITALS: BP 120/76; TEMP 97.5; O2SAT 97
[2024-12-23 04:13] VITALS: BP 110/61; TEMP 97.7; O2SAT 97
[2024-12-24 05:05] VITALS: BP 107/62; TEMP 97.7; O2SAT 97
[2024-12-25 04:08] VITALS: BP 134/74; TEMP 97.9; O2SAT 97
[2024-12-26 03:48] VITALS: BP 98/56; TEMP 97.9; O2SAT 95
[2024-12-27 06:35] VITALS: BP 140/73; TEMP 97.5; O2SAT 96
[2024-12-28 04:47] VITALS: BP 121/76; TEMP 98.1; O2SAT 95
[2024-12-28 08:59] VITALS: BP 101/63
[2024-12-28 09:00] VITALS: BP 101/63
[2024-12-28] MEDS ORDERED: LOSA-527 PO (11:34)
[2024-12-28] MEDS ORDERED: CLOP75TA2 PO (11:34)
[2024-12-28] MEDS ORDERED: GUAI10ELDM PO (11:34)
[2024-12-28] MEDS ORDERED: FLOM0.4C39 PO (11:34)
[2024-12-28] MEDS ORDERED: ASPI81CH8 PO (11:34)
== END 2024-12-28 12:30 | DRG 71 ==
LOC: EDBD 11:36 → M ED 11:36 → M ED INP 17:01 → M MSPAV 18:26
PROVIDERS: ADMIT Student in an Organized Health Care Education/Training Program; ATTEND Student in an Organized Health Care Education/Training Program
PROC: B246ZZZ Ultrasonography of Right and Left Heart (ICD-10-PCS; principal; 2024-11-29)
DX: G93.41 Metabolic encephalopathy (principal); M62.82 Rhabdomyolysis; E87.20 Acidosis, unspecified; N17.9 Acute kidney failure, unspecified; B37.0 Candidal stomatitis; E87.1 Hypo-osmolality and hyponatremia; J98.11 Atelectasis; E87.0 Hyperosmolality and hypernatremia; F03.90 Unspecified dementia, unspecified severity, without behavioral disturbance, psychotic disturbance, mood disturbance, and anxiety; I10 Essential (primary) hypertension; K21.9 Gastro-esophageal reflux disease without esophagitis; N40.1 Benign prostatic hyperplasia with lower urinary tract symptoms; H40.9 Unspecified glaucoma; E55.9 Vitamin D deficiency, unspecified; K58.9 Irritable bowel syndrome, unspecified; I65.23 Occlusion and stenosis of bilateral carotid arteries; I65.02 Occlusion and stenosis of left vertebral artery; R74.01 Elevation of levels of liver transaminase levels; Z66 Do not resuscitate; E87.6 Hypokalemia; R13.10 Dysphagia, unspecified; R33.9 Retention of urine, unspecified; R80.9 Proteinuria, unspecified; R05.3 Chronic cough; R29.6 Repeated falls; B97.4 Respiratory syncytial virus as the cause of diseases classified elsewhere; Z79.899 Other long term (current) drug therapy; Z90.49 Acquired absence of other specified parts of digestive tract; Z88.0 Allergy status to penicillin; Z88.1 Allergy status to other antibiotic agents; Z88.2 Allergy status to sulfonamides; Z88.8 Allergy status to other drugs, medicaments and biological substances; Z98.49 Cataract extraction status, unspecified eye

== ENCOUNTER → 2025-01-04 | Outpatient (REF) | payer MEDICARE ==
[~2025-01-04] MED LIST changes: +ALBU8.5H INH; +ASPI81CH8 PO; +CLOP75TA2 PO; +FLOM0.4C39 PO; +GUAI10ELDM PO; +LISI10TA24 PO; +LOSA-527 PO; +OMEP40CA4 PO; +TERA2CAP3 PO; +VITA-256 PO
[2025-01-04 08:05] LABS: CHOLESTEROL RISK RATIO 2.72 (<5); HDL CHOLESTEROL 44.8 MG/DL (>40); LDL CHOLESTEROL 54.8 MG/DL (<100); NON-HDL-C 77.2 MG/DL
== END ==
LOC: SKLAB2 07:00
PROVIDERS: ATTEND Internal Medicine
DX: E78.5 Hyperlipidemia, unspecified (principal)

== ENCOUNTER → 2025-01-25 | Outpatient (REF) | payer MEDICARE | LOC: SKLAB3 07:34 | PROVIDERS: ATTEND Internal Medicine | DX: R80.9 Proteinuria, unspecified (principal) ==

== ENCOUNTER → 2025-02-05 | Outpatient (REF) | payer MEDICARE ==
[2025-02-05 07:42] LABS: HEMATOCRIT 40.1 % (42.0-52.0); HEMOGLOBIN 12.9 g/dl (13.5-17.5); MEAN CORPUSCULAR HEMOGLOBIN 29.5 pg (27.0-33.0); MEAN CORPUSCULAR HGB CONC 32.2 g/dl (32.0-36.5); MEAN CORPUSCULAR VOLUME 91.8 fl (80.0-96.0); PLATELET COUNT, AUTOMATED 250 10^3/uL (150-450); RED BLOOD COUNT 4.37 10^6/uL (4.30-6.10); WHITE BLOOD COUNT 7.6 10^3/uL (4.0-10.0)
[2025-02-05 08:06] LABS: ALBUMIN 3.4 G/DL (3.2-5.2); ALKALINE PHOSPHATASE 103 U/L (40-129); ALT/SGPT 11 U/L (7.0-40); AST/SGOT 12 U/L (<34); BILIRUBIN,TOTAL 0.4 MG/DL (0.3-1.2); BLOOD UREA NITROGEN 12 MG/DL (9-23); CALCIUM LEVEL 8.9 MG/DL (8.3-10.6); CARBON DIOXIDE LEVEL 27 MMOL/L (20-31); CHLORIDE LEVEL 103 MMOL/L (98-107); CREATININE FOR GFR 0.77 MG/DL (0.70-1.30); GLOMERULAR FILTRATION RATE > 60.0 (>35); GLUCOSE, FASTING 95 MG/DL (74-106); POTASSIUM SERUM 4.1 MMOL/L (3.5-5.1); SODIUM LEVEL 141 MMOL/L (136-145); TOTAL PROTEIN 6.5 G/DL (5.7-8.2)
== END ==
LOC: SKLAB3 07:00
PROVIDERS: ATTEND Internal Medicine
DX: I10 Essential (primary) hypertension (principal)

== ENCOUNTER → 2025-02-18 | Outpatient (REF) | payer MEDICARE | LOC: SKLAB3 14:40 | PROVIDERS: ATTEND Internal Medicine | DX: D72.829 Elevated white blood cell count, unspecified (principal) ==

== ENCOUNTER → 2025-02-18 | Outpatient (REF) | payer MEDICARE ==
[2025-02-18 09:25] LABS: BASO % 0.1 % (0.0-1.0); HEMATOCRIT 46.6 % (42.0-52.0); HEMOGLOBIN 15.1 g/dl (13.5-17.5); LYMPH # 0.8 10^3/uL (1.5-5.0); LYMPH % 5.1 % (24.0-44.0); MEAN CORPUSCULAR HGB CONC 32.4 g/dl (32.0-36.5); MEAN CORPUSCULAR VOLUME 89.4 fl (80.0-96.0); MONO # 0.9 10^3/uL (0.0-0.8); MONO % 5.8 % (2.0-8.0); NEUTROPHILS # 13.4 10^3/uL (1.5-8.5); NEUTROPHILS % 88.5 % (36.0-66.0); PLATELET COUNT, AUTOMATED 242 10^3/uL (150-450); RED BLOOD COUNT 5.21 10^6/uL (4.30-6.10); WHITE BLOOD COUNT 15.2 10^3/uL (4.0-10.0)
[2025-02-18 09:47] LABS: BLOOD UREA NITROGEN 30 MG/DL (9-23); CALCIUM LEVEL 8.8 MG/DL (8.3-10.6); CARBON DIOXIDE LEVEL 21 MMOL/L (20-31); CHLORIDE LEVEL 104 MMOL/L (98-107); CREATININE FOR GFR 0.72 MG/DL (0.70-1.30); GLOMERULAR FILTRATION RATE > 60.0 (>35); GLUCOSE, FASTING 113 MG/DL (74-106); POTASSIUM SERUM 3.9 MMOL/L (3.5-5.1); SODIUM LEVEL 136 MMOL/L (136-145)
[2025-02-18 15:18] LABS: APPEARANCE, URINE HAZY (CLEAR); BACTERIA, URINE AUTO 1+ (NEGATIVE); BILIRUBIN, URINE AUTO NEGATIVE (NEGATIVE); BLOOD, URINE BLOOD 2+ (NEGATIVE); COLOR, URINE AMBER (YELLOW); GLUCOSE, URINE (UA) AUTO NEGATIVE (NEGATIVE); KETONE, URINE AUTO NEGATIVE (NEGATIVE); LEUKOCYTE ESTERASE, URINE AUTO NEGATIVE (NEGATIVE); MUCUS, URINE SMALL (NEGATIVE); NITRITE, URINE AUTO POSITIVE (NEGATIVE); PROTEIN, URINE AUTO 1+ mg/dL (NEGATIVE); RBC, URINE AUTO 4 /HPF (0-3); SPECIFIC GRAVITY URINE AUTO 1.023 (1.002-1.035); SQUAMOUS EPITHELIAL CELL UR AU 0 /HPF (0-6); UROBILINOGEN, URINE AUTO 0.2 mg/dL (0.0-2.0); WBC, URINE AUTO 6 /HPF (0-3)
== END ==
LOC: SKLAB3 08:39
PROVIDERS: ATTEND Internal Medicine
DX: R11.10 Vomiting, unspecified (principal); R19.7 Diarrhea, unspecified; D72.829 Elevated white blood cell count, unspecified; Z79.899 Other long term (current) drug therapy

== ENCOUNTER → 2025-02-19 | Outpatient (REF) | payer MEDICARE | LOC: SKLAB3 14:23 | PROVIDERS: ATTEND Internal Medicine | DX: R05.9 Cough, unspecified (principal) ==

== ENCOUNTER → 2025-02-21 | Outpatient (REF) | payer MEDICARE ==
[2025-02-21 06:54] LABS: BASO % 0.1 % (0.0-1.0); EOS % 0.3 % (0.0-3.0); HEMATOCRIT 40.2 % (42.0-52.0); HEMOGLOBIN 13.1 g/dl (13.5-17.5); LYMPH # 2.2 10^3/uL (1.5-5.0); LYMPH % 29.4 % (24.0-44.0); MEAN CORPUSCULAR HEMOGLOBIN 28.5 pg (27.0-33.0); MEAN CORPUSCULAR HGB CONC 32.6 g/dl (32.0-36.5); MEAN CORPUSCULAR VOLUME 87.4 fl (80.0-96.0); MONO # 0.6 10^3/uL (0.0-0.8); MONO % 7.5 % (2.0-8.0); NEUTROPHILS # 4.7 10^3/uL (1.5-8.5); NEUTROPHILS % 62.3 % (36.0-66.0); PLATELET COUNT, AUTOMATED 211 10^3/uL (150-450); WHITE BLOOD COUNT 7.6 10^3/uL (4.0-10.0)
[2025-02-21 07:25] LABS: BLOOD UREA NITROGEN 29 MG/DL (9-23); CALCIUM LEVEL 8.3 MG/DL (8.3-10.6); CARBON DIOXIDE LEVEL 26 MMOL/L (20-31); CHLORIDE LEVEL 104 MMOL/L (98-107); CREATININE FOR GFR 0.71 MG/DL (0.70-1.30); GLOMERULAR FILTRATION RATE > 60.0 (>35); GLUCOSE, FASTING 87 MG/DL (74-106); POTASSIUM SERUM 3.6 MMOL/L (3.5-5.1); SODIUM LEVEL 139 MMOL/L (136-145)
[2025-02-21 21:58] LABS: KETONE, URINE AUTO RFX NEGATIVE (NEGATIVE); LEUKOCYTE ESTERASE UR AUTO RFX NEGATIVE (NEGATIVE); MUCUS, URINE RFX SMALL (NEGATIVE); NITRITE, URINE AUTO RFX NEGATIVE (NEGATIVE); RBC, URINE AUTO RFX 5 /HPF (0-3); SQUAM EPITHELIAL CELL UR AURFX 0 /HPF (0-6); WBC, URINE AUTO RFX 1 /HPF (0-3)
== END ==
LOC: SKLAB3 07:00
PROVIDERS: ATTEND Internal Medicine
DX: N39.0 Urinary tract infection, site not specified (principal)

== ENCOUNTER → 2025-02-22 | Outpatient (REF) | payer MEDICARE | LOC: SKLAB3 11:52 | PROVIDERS: ATTEND Internal Medicine | DX: Z53.8 Procedure and treatment not carried out for other reasons (principal) ==

== ENCOUNTER 2025-03-12 19:03 | Inpatient (IN) | payer MEDICARE ==
[~2025-03-12] VITALS: Ht 167.6 cm; Wt 60.6 kg
[~2025-03-12 19:03] MED LIST changes: -FLOM0.4C39 PO; +TAMS-18 PO
[2025-03-12 20:41] LABS: HEMATOCRIT 40.9 % (42.0-52.0); HEMOGLOBIN 13.5 g/dl (13.5-17.5); MEAN CORPUSCULAR HEMOGLOBIN 29.3 pg (27.0-33.0); MEAN CORPUSCULAR VOLUME 88.7 fl (80.0-96.0); PLATELET COUNT, AUTOMATED 242 10^3/uL (150-450); RED BLOOD COUNT 4.61 10^6/uL (4.30-6.10); WHITE BLOOD COUNT 12.1 10^3/uL (4.0-10.0)
[2025-03-12 21:10] LABS: BLOOD UREA NITROGEN 12 MG/DL (9-23); CARBON DIOXIDE LEVEL 26 MMOL/L (20-31); CHLORIDE LEVEL 99 MMOL/L (98-107); CREATININE FOR GFR 0.65 MG/DL (0.70-1.30); GLOMERULAR FILTRATION RATE > 90.0 (>35); GLUCOSE, FASTING 103 MG/DL (74-106); POTASSIUM SERUM 4.3 MMOL/L (3.5-5.1); SODIUM LEVEL 132 MMOL/L (136-145)
[2025-03-12] MEDS: LIDOCAINE 2% MDV 20ML VIAL SC ONE (21:10)
[2025-03-12 21:12] LABS: INR 1.02; PARTIAL THROMBOPLASTIN TIME 28.7 SECONDS (24.8-34.2); PROTHROMBIN TIME 13.7 SECONDS (12.5-14.5)
[2025-03-12] MEDS: oxyCODONE 5MG TAB PO ONE (22:27)
[2025-03-12] MEDS: ACETAMINOPHEN *IV* 1,000 MG in IV 1 EA IV ONE (22:27)
[2025-03-12] MEDS: LIDOCAINE 5% (LIDODERM) PATCH TD ONE (22:27)
[2025-03-12] MEDS ORDERED: ATOR1TAB21 PO (23:09)
[2025-03-12] MEDS ORDERED: ACET650T61 PO (23:09)
[2025-03-12] MEDS ORDERED: MILKSUS3 PO (23:09)
[2025-03-12] MEDS ORDERED: LOSA25TA13 PO (23:09)
[2025-03-12] MEDS ORDERED: XALA0.007 OU (23:09)
[2025-03-12] MEDS ORDERED: SERT50TA29 PO (23:09)
[2025-03-12] MEDS ORDERED: BUSP5TA PO (23:09)
[2025-03-12] MEDS ORDERED: OMEP-173 PO (23:09)
[2025-03-12] MEDS ORDERED: ACET-907 PO (23:09)
[2025-03-12] MEDS ORDERED: HOME MED LIST COMPLETE! XX SCH (23:10)
[2025-03-13] MEDS ORDERED: oxyCODONE 5MG TAB PO PRN ×2 (00:55)
[2025-03-13] MEDS ORDERED: ALBUTEROL 90 MCG/ACT 8GM HFA INHALER INH PRN (00:55)
[2025-03-13] MEDS ORDERED: MOM 30ML SUSPENSION UDC PO PRN (00:55)
[2025-03-13 01:22] LABS: BASO % 0.2 % (0.0-1.0); EOS # 0.1 10^3/uL (0.0-0.5); EOS % 0.3 % (0.0-3.0); HEMATOCRIT 41.1 % (42.0-52.0); HEMOGLOBIN 13.5 g/dl (13.5-17.5); LYMPH # 2.9 10^3/uL (1.5-5.0); MEAN CORPUSCULAR HEMOGLOBIN 29.1 pg (27.0-33.0); MEAN CORPUSCULAR HGB CONC 32.8 g/dl (32.0-36.5); MEAN CORPUSCULAR VOLUME 88.6 fl (80.0-96.0); MONO # 1.5 10^3/uL (0.0-0.8); MONO % 10.4 % (2.0-8.0); NEUTROPHILS # 9.8 10^3/uL (1.5-8.5); NEUTROPHILS % 68.6 % (36.0-66.0); PLATELET COUNT, AUTOMATED 244 10^3/uL (150-450); RED BLOOD COUNT 4.64 10^6/uL (4.30-6.10); WHITE BLOOD COUNT 14.3 10^3/uL (4.0-10.0)
[2025-03-13 01:47] LABS: ALBUMIN 3.5 G/DL (3.2-5.2); ALKALINE PHOSPHATASE 84 U/L (40-129); ALT/SGPT 21 U/L (7.0-40); AST/SGOT 24 U/L (<34); BILIRUBIN,TOTAL 1.1 MG/DL (0.3-1.2); BLOOD UREA NITROGEN 12 MG/DL (9-23); CALCIUM LEVEL 8.7 MG/DL (8.3-10.6); CARBON DIOXIDE LEVEL 24 MMOL/L (20-31); CHLORIDE LEVEL 98 MMOL/L (98-107); CREATININE FOR GFR 0.65 MG/DL (0.70-1.30); GLOMERULAR FILTRATION RATE > 90.0 (>35); GLUCOSE, FASTING 101 MG/DL (74-106); MAGNESIUM LEVEL 1.9 MG/DL (1.8-2.4); SODIUM LEVEL 131 MMOL/L (136-145); TOTAL PROTEIN 6.2 G/DL (5.7-8.2)
[2025-03-13] MEDS ORDERED: PILL CUTTER 1 EACH XX PRN (02:50)
[2025-03-13] MEDS ORDERED: DORZ2SOL4 OU (07:07)
[2025-03-13] MEDS: DOCUSATE SODIUM 100MG CAPSULE PO SCH (08:23)
[2025-03-13] MEDS: SERTRALINE HCL 50 MG TAB PO SCH (08:23)
[2025-03-13] MEDS: ACETAMINOPHEN 650MG ER TAB (TYLENOL ARTHRITIS) PO SCH (08:23)
[2025-03-13] MEDS: busPIRone 5 MG TAB PO SCH (08:23)
[2025-03-13] MEDS: LOSARTAN 25 MG TAB PO SCH (08:25)
[2025-03-13] MEDS ORDERED: BRINZOLAMIDE 1% OPHTH SUSP (AZOPT) 10ML OU SCH (09:00)
[2025-03-13] MEDS: DORZOLAMIDE 2% OPHTH SOLN 10 ML BTL OU SCH (09:00)
[2025-03-13 10:30] VITALS: BP 145/73; TEMP 97.3; O2SAT 96
[2025-03-13 12:00] VITALS: BP 151/74; TEMP 97.9; O2SAT 97
[2025-03-13] MEDS: ACETAMINOPHEN 325 MG TAB PO PRN (12:20)
[2025-03-13] MEDS: OLANZapine ORAL DISINTEGRATING TAB 5MG PO PRN (12:20)
[2025-03-13 16:00] VITALS: BP 105/58; TEMP 97.3; O2SAT 92
[2025-03-13] MEDS: OMEPRAZOLE 20MG CAP PO SCH (20:15)
[2025-03-13] MEDS: TAMSULOSIN 0.4 MG CAP PO SCH (20:15)
[2025-03-13] MEDS: ATORVASTATIN 20 MG TAB PO SCH (20:15)
[2025-03-13 20:19] VITALS: BP 125/69; TEMP 97.9; O2SAT 94
[2025-03-13 20:45] VITALS: BP 119/67; TEMP 97.3; O2SAT 94
[2025-03-13] MEDS: LATANOPROST 0.005% OPHTH SOLN 2.5 ML OU SCH (21:00)
[2025-03-14 06:55] LABS: HEMATOCRIT 38.4 % (42.0-52.0); HEMOGLOBIN 12.9 g/dl (13.5-17.5); MEAN CORPUSCULAR HEMOGLOBIN 30.1 pg (27.0-33.0); MEAN CORPUSCULAR HGB CONC 33.6 g/dl (32.0-36.5); MEAN CORPUSCULAR VOLUME 89.7 fl (80.0-96.0); PLATELET COUNT, AUTOMATED 208 10^3/uL (150-450); RED BLOOD COUNT 4.28 10^6/uL (4.30-6.10); WHITE BLOOD COUNT 7.7 10^3/uL (4.0-10.0)
[2025-03-14 07:24] LABS: ALBUMIN 3.3 G/DL (3.2-5.2); BILIRUBIN,TOTAL 0.7 MG/DL (0.3-1.2); CALCIUM LEVEL 8.9 MG/DL (8.3-10.6); CREATININE FOR GFR 0.82 MG/DL (0.70-1.30); POTASSIUM SERUM 4.4 MMOL/L (3.5-5.1)
[2025-03-14 08:12] VITALS: BP 127/75
[2025-03-14 08:15] VITALS: BP 127/75; TEMP 97.5; O2SAT 95
[2025-03-14] MEDS: MAALOX 30 ML SUSP *UDC PO PRN (08:54)
[2025-03-14] MEDS: LIDOCAINE 5% (LIDODERM) PATCH TD SCH (08:54)
[2025-03-14 12:00] VITALS: BP 136/58; TEMP 97.7; O2SAT 71
[2025-03-14] MEDS ORDERED: OLAN5ZYD PO (12:41)
[2025-03-14] MEDS ORDERED: ENDO5TAB PO (12:52)
== END 2025-03-14 13:50 | DRG 184 ==
LOC: M ED 19:03 → M ED INP 23:50 → M MS5PR 03-13 10:25
PROVIDERS: ADMIT Family Medicine; ATTEND Student in an Organized Health Care Education/Training Program
DX: S22.41XA Multiple fractures of ribs, right side, initial encounter for closed fracture (principal); E87.1 Hypo-osmolality and hyponatremia; F03.90 Unspecified dementia, unspecified severity, without behavioral disturbance, psychotic disturbance, mood disturbance, and anxiety; I10 Essential (primary) hypertension; K21.9 Gastro-esophageal reflux disease without esophagitis; N40.0 Benign prostatic hyperplasia without lower urinary tract symptoms; H40.9 Unspecified glaucoma; K58.9 Irritable bowel syndrome, unspecified; I25.10 Atherosclerotic heart disease of native coronary artery without angina pectoris; Z98.49 Cataract extraction status, unspecified eye; Z90.49 Acquired absence of other specified parts of digestive tract; S01.01XA Laceration without foreign body of scalp, initial encounter; K44.9 Diaphragmatic hernia without obstruction or gangrene; H54.7 Unspecified visual loss; R29.6 Repeated falls; W19.XXXA Unspecified fall, initial encounter; Y92.009 Unspecified place in unspecified non-institutional (private) residence as the place of occurrence of the external cause; Z66 Do not resuscitate; Z79.82 Long term (current) use of aspirin; Z79.899 Other long term (current) drug therapy; Z88.1 Allergy status to other antibiotic agents; Z88.2 Allergy status to sulfonamides; Z88.8 Allergy status to other drugs, medicaments and biological substances

== ENCOUNTER → 2025-05-14 | Outpatient (REF) | payer MEDICARE ==
[~2025-05-14] MED LIST changes: +ACET-907 PO; +ACET650T61 PO; +ATOR1TAB21 PO; +BUSP5TA PO; +DORZ2SOL4 OU; +ENDO5TAB PO; +LOSA25TA13 PO; +MILKSUS3 PO; +OLAN5ZYD PO; +OMEP-173 PO; +SERT50TA29 PO; +XALA0.007 OU
[2025-05-14 08:39] LABS: BASO % 0.1 % (0.0-1.0); EOS # 0.1 10^3/uL (0.0-0.5); EOS % 0.6 % (0.0-3.0); HEMATOCRIT 45.1 % (42.0-52.0); HEMOGLOBIN 14.1 g/dl (13.5-17.5); LYMPH # 2.2 10^3/uL (1.5-5.0); LYMPH % 25.6 % (24.0-44.0); MEAN CORPUSCULAR HEMOGLOBIN 28.3 pg (27.0-33.0); MEAN CORPUSCULAR HGB CONC 31.3 g/dl (32.0-36.5); MEAN CORPUSCULAR VOLUME 90.6 fl (80.0-96.0); MONO # 0.6 10^3/uL (0.0-0.8); MONO % 7.2 % (2.0-8.0); NEUTROPHILS # 5.7 10^3/uL (1.5-8.5); NEUTROPHILS % 66.2 % (36.0-66.0); PLATELET COUNT, AUTOMATED 239 10^3/uL (150-450); RED BLOOD COUNT 4.98 10^6/uL (4.30-6.10); WHITE BLOOD COUNT 8.6 10^3/uL (4.0-10.0)
[2025-05-14 08:55] LABS: ALBUMIN 4.1 G/DL (3.2-5.2); BILIRUBIN,TOTAL 0.7 MG/DL (0.3-1.2); CALCIUM LEVEL 9.9 MG/DL (8.3-10.6); CREATININE FOR GFR 0.71 MG/DL (0.70-1.30); GLOMERULAR FILTRATION RATE 88.3 (>35); POTASSIUM SERUM 4.5 MMOL/L (3.5-5.1); TOTAL PROTEIN 7.4 G/DL (5.7-8.2)
== END ==
LOC: SKLAB3 07:44
PROVIDERS: ATTEND Internal Medicine
DX: R07.9 Chest pain, unspecified (principal)